=== PATIENT | female | born 1955 | race Caucasian/White ===

== ENCOUNTER 2020-01-16 15:18 | Emergency (ER) | payer BC, SELFPAY ==
--- NOTE | 2020-01-16 15:19 | ED.GENADUL_ITS ---
Discharge Plan Disposition Patient Disposition: HOME Condition: Stable Discharge Details Chief Complaint: RashLesion Clinical Impression: Tick bite of ear Primary Care Provider: Chula Holm ED Provider: Ofe Hansen Home Meds and New Rx's Prescriptions: No Action levothyroxine [Synthroid] 125 MCG tablet 125 mcg PO DAILY RF: 0 pravastatin 20 MG tablet 20 mg PO DAILY RF: 0 Discharge Instructions Instructions: Tick Bite (ED) Additional Instructions: Keep wound clean and dry. Wash wound with soap and water. Cover wound with topical antibiotic ointment 1-2 times daily over the next few days. You can send the tick for testing for Lyme disease as directed on the card given to you. Follow-up with your primary care doctor this week for reevaluation as needed. Return to the emergency department or follow-up with your primary care doctor if you develop fever, chills, body aches or bull's-eye rash. Discharge Data Discharge Physician: Ofe Hansen Medical Decision Making 64-year-old female presents with tick embedded in right earlobe. Tick appears intact. There is surrounding inflammation but no evidence of concerning inf ection. R ear canal and TM appears normal. Tick easily removed with tick remover and placed in container and bag to be sent for testing. She has a 1 mm pinpoint lesion at site of tick bite which was irrigated and covered with antibiotic ointment. As tick was present less than 24 hours, not engorged and she has no concerning symptoms or signs, do not see an indication for prophylactic antibiotics for Lyme disease and patient is agreeable with this plan and will send tick for testing and follow-up with her PCP or return here with any concerns. She is advised on proper wound care. Medical Records Medical records reviewed: Yes I reviewed the patient's medical records. HPI General Mode of arrival: ambulatory . Date/Time Provider Initiated Documentation: 01/16/20 15:19 . Limitations to Documentation: no limitations . Information obtained by: patient . HPI Narrative: Patient is a 64-year-old fe male who presents with tick embedded in her right earlobe that she thinks is been present since yesterday afternoon. She states she thinks it is been there for under 24 hours. She states it is not been engorged. She is admitting to some pain around the area. She is unsure of her tetanus status. Related Data Home Medications Medication Instructions Recorded Confirmed levothyroxine [Synthroid] 125 mcg PO DAILY 08/30/13 01/16/20 pravastatin 20 mg PO DAILY 08/31/13 01/16/20 Allergies Allergy/AdvReac Type Severity Reaction Status Date / Time amitriptyline Allergy Mild Skin Rash Unverified 01/16/20 15:31 codeine AdvReac Mild Nausea Unverified 01/16/20 15:31 omeprazole [From Prilosec] AdvReac Mild Swelling/Ed Unverified 01/16/20 15:31 estefani Review of Systems All systems reviewed & are unremarkable except as noted in HPI and below Constitutional Constitutional: Reports as per HPI, Denies chills and Denies fever(s) Eyes Eyes: Denies blurry vision ENT Ears, Nose, Mouth, and Throat: Denies dizziness, Denies sore throat and Denies throat swelling Cardiovascular Cardiovascular: Denies chest pain and Denies dyspnea Respiratory Respiratory: Denies cough and Denies dyspnea Gastrointestinal Gastrointestinal: Denies abdominal pain, Denies diarrhea and Denies vomiting Genitourinary Genitourinary: Denies hematuria and Denies dysuria Musculoskeletal Musculoskeletal: Denies back pain and Denies numbness Integumentary/Breasts Skin/Breast: Reports lesions and Denies rash Neurologic Neurologic: Denies dizziness, Denies localized weakness and Denies numbness Allergic/Immunologic Allergic/Immunologic: Denies throat swelling [facility] Medical History (Updated 01/16/20 @ 15:39 by Ofe Hansen DO) Depression (Chronic) Hx of hyperlipidemia (Acute) Hypothyroidism (Chronic) Surgical History (Updated 01/16/20 @ 15:39 by Ofe Hansen DO) History of carpal tunnel release (Acute) History of hysterectomy (Chronic) Social History Smoking/Tobacco Use Status: Former Tobacco Use Tobacco: How many years used: 30 Drug use: Never Substance use type: does not use Do you feel safe at home: Yes Do you feel safe in your relationship?: Yes Exam Const General: cooperative, healthy appearing and no acute distress HENMT Head: normal to inspection Ears: hearing grossly normal bilaterally and TM's normal bilaterally Outer ear/TM images: 1. Entire tick noted embedded in upper ear lobe. There is surrounding tenderness, edema, erythema. There is no induration or fluctuance. General nose exam: external nose normal Face and sinus: normal facial exam Mouth: oral mucosae normal Eyes General: appearance normal, both eyes and all related structures Neck Neck: normal visual inspection Resp Effort & Inspection: normal respiratory effort and able to speak in complete sentences Cardio Rate: regular rate Neuro General: patient alert, patient awake and patient oriented x3 Motor: muscle tone normal throughout Extrem General: normal to inspection and full ROM Psych Appearance: grossly normal Affect: normal affect
[2020-01-16 15:24] VITALS: BP 162/77; PULSE 89; RESP 19; TEMP 36.5; O2SAT 100
== END 2020-01-16 16:05 | disposition home or self-care (01) ==
PROVIDERS: Emergency Provider Physician Assistant; PCP Registered Nurse
DX: S00.461A Insect bite (nonvenomous) of right ear, initial encounter (principal); W57.XXXA Bitten or stung by nonvenomous insect and other nonvenomous arthropods, initial encounter
CPT/HCPCS: 90471; 99284; 99283